=== PATIENT | male | born 1945 | race Caucasian/White ===

== ENCOUNTER 2018-02-16 16:05 | Inpatient (IN) | payer OTHER ==
[~2018-02-16] VITALS: Ht 188 cm; Wt 70.8 kg
[2018-02-16] MEDS ORDERED: OMEPRAZOLE20 MG (16:38)
[2018-02-16] MEDS ORDERED: URSO FORTE500 MG (16:39)
[2018-02-16] MEDS ORDERED: ENALAPRIL-HCTZ1 EACH (16:39)
[2018-02-16] MEDS ORDERED: TOPROL XL25 MG (16:39)
[2018-02-16] MEDS ORDERED: TAMS0.4C (16:39)
[2018-02-16] MEDS ORDERED: TRAMADOL HCL50 MG (16:40)
[2018-02-16] MEDS ORDERED: LACTULOSE10 GM/15 M (16:40)
[2018-02-16] MEDS ORDERED: XANAX2 MG (16:40)
== END 2018-02-19 15:24 | disposition home or self-care (01) | DRG 433 ==
LOC: ER 16:05 → MEDI 23:45
DX: K70.30 Alcoholic cirrhosis of liver without ascites (principal); F13.20 Sedative, hypnotic or anxiolytic dependence, uncomplicated; D63.8 Anemia in other chronic diseases classified elsewhere; D51.3 Other dietary vitamin B12 deficiency anemia; N40.0 Benign prostatic hyperplasia without lower urinary tract symptoms; T42.4X5A Adverse effect of benzodiazepines, initial encounter; Y92.098 Other place in other non-institutional residence as the place of occurrence of the external cause; I12.9 Hypertensive chronic kidney disease with stage 1 through stage 4 chronic kidney disease, or unspecified chronic kidney disease; N18.1 Chronic kidney disease, stage 1; D63.1 Anemia in chronic kidney disease; D69.59 Other secondary thrombocytopenia